=== PATIENT | male | born 1940 | race Caucasian/White ===

== ENCOUNTER 2021-06-19 08:29 | Emergency (ER) | payer MEDICARE, MEDICAID | END 2021-06-19 09:44 | disposition home or self-care (01) | LOC: ERS 08:29 | DX: M79.605 Pain in left leg (principal); M79.604 Pain in right leg; G89.29 Other chronic pain; R60.0 Localized edema; K21.9 Gastro-esophageal reflux disease without esophagitis; F17.210 Nicotine dependence, cigarettes, uncomplicated | CPT/HCPCS: 99283 ==

== ENCOUNTER 2021-06-23 12:34 | Outpatient (CLI) | payer MEDICARE, MEDICAID ==
[2021-06-23 13:59] LABS: Hemoglobin 15.4 g/dL (13.5-17.5); Mean Corpuscular HGB CONC 34.8 g/dL (32.0-36.0); Mean Corpuscular Hemoglobin 31.9 pg (27.0-33.0); Mean Corpuscular Volume 91.7 fl (81.2-95.1); Mean Platelet Volume 8.6 fl (7.4-10.4); Platelet Count 242 10x3/uL (150-450); RBC Distribution Width 13.2 % (11.5-14.5); Red Blood Cell (RBC) Count 4.83 10x6/uL (4.32-5.72); White Blood Cell (WBC) Count 4.9 10x3/uL (3.5-10.5)
[2021-06-23 14:10] LABS: Anion Gap 14 mmol/L (10-20); BUN (Urea Nitrogen) 7 mg/dL (8.4-25.7); Calc. Creatinine Clearance 0 mL/min (70-130); Calcium 8.9 mg/dL (7.8-10.44); Carbon Dioxide 25 mmol/L (23-31); Chloride 91 mmol/L (98-107); Glucose 79 mg/dL (83-110); Potassium 4.5 mmol/L (3.5-5.1); Sodium 125 mmol/L (136-145)
[2021-06-24 12:30] LABS: SARS-CoV-2 PCR by NAA Not Detected (NotDetected)
== END 2021-06-23 12:35 | disposition home or self-care (01) ==
LOC: LABBT 12:34
PROVIDERS: ATTEND Thoracic Surgery (Cardiothoracic Vascular Surgery)
DX: Z01.818 Encounter for other preprocedural examination (principal); Z20.822 Contact with and (suspected) exposure to COVID-19
CPT/HCPCS: 80048; 85027; 93005; U0003; U0005; 93010

== ENCOUNTER 2021-06-26 09:27 | Day surgery (SDC) | payer MEDICARE, MEDICAID ==
[2021-06-23 12:10] VITALS: BMI 18.1
[2021-06-26] MEDS ORDERED: Iopamidol 370 76% 50 ML VIAL FS ONE (09:28)
[2021-06-26 12:20] LABS: Anion Gap 14 mmol/L (10-20); BUN (Urea Nitrogen) 6 mg/dL (8.4-25.7); Calc. Creatinine Clearance 61 mL/min (70-130); Calcium 8.9 mg/dL (7.8-10.44); Carbon Dioxide 21 mmol/L (23-31); Glucose 92 mg/dL (83-110); Potassium 4.1 mmol/L (3.5-5.1); Sodium 124 mmol/L (136-145)
[2021-06-26 12:21] LABS: Chloride 93 mmol/L (98-107)
[2021-06-26] MEDS ORDERED: Heparin 10,000 UNITS/ 10 ML VIAL ONE (13:55)
[2021-06-26] MEDS ORDERED: Lidocaine 1% (PF) 30 ML VIAL ONE (13:55)
[2021-06-26] MEDS ORDERED: Fentanyl 100 MCG/2 ML VIAL ONE (14:24)
[2021-06-26] MEDS ORDERED: Midazolam HCl 2 mg/2 ml Vial ONE (14:24)
[2021-06-26] MEDS ORDERED: hydrALAZINE 20 MG/ML VIAL ONE (15:00)
== END 2021-06-26 17:12 | disposition home or self-care (01) ==
LOC: SDC 09:27
PROVIDERS: ATTEND Thoracic Surgery (Cardiothoracic Vascular Surgery)
PROC: B41G1ZZ Fluoroscopy of Left Lower Extremity Arteries using Low Osmolar Contrast (ICD-10-PCS; principal; 2021-06-26)
PROC: B41F1ZZ Fluoroscopy of Right Lower Extremity Arteries using Low Osmolar Contrast (ICD-10-PCS; 2021-06-26)
DX: I73.9 Peripheral vascular disease, unspecified (principal); I10 Essential (primary) hypertension; Z87.891 Personal history of nicotine dependence; Z79.899 Other long term (current) drug therapy
CPT/HCPCS: 75710; 80048; 99152; 99153; J0360; J1644; J2001; J2250; J3010; Q9967

== ENCOUNTER 2021-08-02 08:42 | Outpatient (CLI) | payer MEDICARE, MEDICAID ==
[2021-08-02 10:07] LABS: Hemoglobin 15.6 g/dL (13.5-17.5); Mean Corpuscular HGB CONC 33.5 g/dL (32.0-36.0); Mean Corpuscular Hemoglobin 32.5 pg (27.0-33.0); Mean Corpuscular Volume 96.9 fl (81.2-95.1); Mean Platelet Volume 8.7 fl (7.4-10.4); Platelet Count 246 10x3/uL (150-450); RBC Distribution Width 12.8 % (11.5-14.5); White Blood Cell (WBC) Count 4.7 10x3/uL (3.5-10.5)
[2021-08-02 10:39] LABS: Prothrombin Time 10.5 sec (9.5-12.1)
[2021-08-02 10:41] LABS: Anion Gap 14 mmol/L (10-20); BUN (Urea Nitrogen) 12 mg/dL (8.4-25.7); Calc. Creatinine Clearance 0 mL/min (70-130); Calcium 9.1 mg/dL (7.8-10.44); Carbon Dioxide 25 mmol/L (23-31); Chloride 98 mmol/L (98-107); Glucose 91 mg/dL (83-110); Potassium 4.3 mmol/L (3.5-5.1); Sodium 133 mmol/L (136-145)
== END 2021-08-02 08:43 | disposition home or self-care (01) ==
LOC: LABBT 08:42
PROVIDERS: ATTEND Thoracic Surgery (Cardiothoracic Vascular Surgery)
DX: Z01.812 Encounter for preprocedural laboratory examination (principal); I73.9 Peripheral vascular disease, unspecified; Z20.822 Contact with and (suspected) exposure to COVID-19
CPT/HCPCS: 80048; 85027; 85610; 85730; 86850; 86900; 86901; U0003; U0005

== ENCOUNTER 2021-08-02 08:45 | Inpatient (IN) | payer MEDICARE, MEDICAID ==
[2021-08-02 10:07] LABS: Hemoglobin 15.6 g/dL (13.5-17.5); Mean Corpuscular HGB CONC 33.5 g/dL (32.0-36.0); Mean Corpuscular Hemoglobin 32.5 pg (27.0-33.0); Mean Corpuscular Volume 96.9 fl (81.2-95.1); Mean Platelet Volume 8.7 fl (7.4-10.4); Platelet Count 246 10x3/uL (150-450); RBC Distribution Width 12.8 % (11.5-14.5); White Blood Cell (WBC) Count 4.7 10x3/uL (3.5-10.5)
[2021-08-02 10:39] LABS: Prothrombin Time 10.5 sec (9.5-12.1)
[2021-08-02 10:41] LABS: Anion Gap 14 mmol/L (10-20); BUN (Urea Nitrogen) 12 mg/dL (8.4-25.7); Calc. Creatinine Clearance 0 mL/min (70-130); Calcium 9.1 mg/dL (7.8-10.44); Carbon Dioxide 25 mmol/L (23-31); Chloride 98 mmol/L (98-107); Glucose 91 mg/dL (83-110); Potassium 4.3 mmol/L (3.5-5.1); Sodium 133 mmol/L (136-145)
[2021-08-07] MEDS ORDERED: Heparin 5,000 UNITS/ML VIAL ONE (07:38)
[2021-08-07] MEDS ORDERED: Protamine Sulfate 50 MG/5 ML VIAL ONE ×2 (07:38→10:58)
[2021-08-07] MEDS ORDERED: Lidocaine 1% MPF 2 ML VIAL ONE (08:28)
[2021-08-07] MEDS ORDERED: fentaNYL Citrate/PF 100 MCG/2 ML SYRINGE ONE ×2 (09:01→11:12)
[2021-08-07] MEDS ORDERED: PROPOFOL 200 MG/20 ML VIAL ONE (09:14)
[2021-08-07] MEDS ORDERED: Ondansetron PF 4 MG/2 ML Vial ONE (09:14)
[2021-08-07] MEDS ORDERED: Glycopyrrolate 0.2 MG/ML 5 ML SYRINGE ONE (09:14)
[2021-08-07] MEDS ORDERED: Dexamethasone 20 MG/5 ML VIAL ONE (09:14)
[2021-08-07] MEDS ORDERED: Lidocaine 1% PF 5 ML VIAL ONE (09:14)
[2021-08-07] MEDS ORDERED: Rocuronium Bromide 10 MG/ML (10ML VIAL) ONE (09:14)
[2021-08-07] MEDS ORDERED: CEFAZOLIN 2 GM VIAL ONE (09:35)
[2021-08-07] MEDS ORDERED: Sodium Chloride 0.9% 100 ML ONE (09:35)
[2021-08-07] MEDS ORDERED: EPINEPHrine 1 MG/ML AMP ONE (11:00)
[2021-08-07] MEDS ORDERED: Dexamethasone 4 mg/ml Vial ONE (11:00)
[2021-08-07] MEDS ORDERED: Bupivacaine PF 0.5% 30 ML VIAL ONE (11:00)
[2021-08-07] MEDS ORDERED: Ondansetron HCl/PF 4 MG/2 ML Vial IVP PRN (11:34)
[2021-08-07] MEDS ORDERED: Meperidine HCl/PF 25 MG/ML VIAL SLOW IVP PRN (11:34)
[2021-08-07] MEDS ORDERED: Promethazine HCl 25 MG/ML VIAL IM PRN (11:34)
[2021-08-07] MEDS ORDERED: Promethazine HCl 25 MG/ML VIAL IVPB PRN (11:34)
[2021-08-07] MEDS ORDERED: Acetaminophen 325 MG TAB PO PRN (11:46)
[2021-08-07] MEDS ORDERED: Ondansetron PF 4 MG/2 ML Vial IVP PRN (11:46)
[2021-08-07] MEDS ORDERED: traMADol HCl 50 MG TAB PO PRN (11:46)
[2021-08-07] MEDS ORDERED: hydrALAZINE 20 MG/ML VIAL SLOW IVP PRN (11:46)
[2021-08-07] MEDS ORDERED: Fentanyl 100 MCG/2 ML VIAL SLOW IVP PRN ×2 (11:46)
[2021-08-07 13:14] VITALS: BMI 21.5
[2021-08-07] MEDS: traMADol HCl 50 MG TAB PO PRN (14:34)
[2021-08-07] MEDS: Sodium Chloride 0.9% 1,000 ML IV SCH (14:34)
[2021-08-07] MEDS: CEFAZOLIN 2 GM in Sodium Chloride 0.9% 100 ML IVPB SCH (17:38)
[2021-08-07] MEDS: Atorvastatin Calcium 20 MG TAB PO SCH (20:26)
[2021-08-08] MEDS: Sodium Chloride 0.9% 1,000 ML IV SCH (01:48)
[2021-08-08] MEDS: CEFAZOLIN 2 GM in Sodium Chloride 0.9% 100 ML IVPB SCH ×2 (01:48→08:46)
[2021-08-08] MEDS: traMADol HCl 50 MG TAB PO PRN (03:45)
[2021-08-08] MEDS: Aspirin Chewable 81 MG TAB PO SCH (08:45)
[2021-08-08] MEDS: Lisinopril/Hydrochlorothiazide 20/25 mg Tablet PO SCH (08:45)
[2021-08-08] MEDS: Atorvastatin Calcium 20 MG TAB PO SCH (20:22)
[2021-08-09] MEDS: Aspirin Chewable 81 MG TAB PO SCH (08:26)
[2021-08-09] MEDS: Lisinopril/Hydrochlorothiazide 20/25 mg Tablet PO SCH (08:26)
[2021-08-09 08:28] VITALS: TEMP 98
[2021-08-09 10:30] VITALS: BP 143/94
== END 2021-08-09 10:11 | disposition home or self-care (01) | DRG 254 ==
LOC: SURG A 08-07 07:23 → T4-B 08-07 13:04
PROVIDERS: ADMIT Thoracic Surgery (Cardiothoracic Vascular Surgery); ATTEND Thoracic Surgery (Cardiothoracic Vascular Surgery)
PROC: 041L0JL Bypass Left Femoral Artery to Popliteal Artery with Synthetic Substitute, Open Approach (ICD-10-PCS; principal; 2021-08-07)
DX: I70.222 Atherosclerosis of native arteries of extremities with rest pain, left leg (principal); Z20.822 Contact with and (suspected) exposure to COVID-19; I10 Essential (primary) hypertension; J44.9 Chronic obstructive pulmonary disease, unspecified; Z87.891 Personal history of nicotine dependence; Z79.899 Other long term (current) drug therapy
CPT/HCPCS: 80048; 85027; 85610; 85730; 86850; 86900; 86901; C1786; J0171; J0690; J1100; J1642; J1644; J2720; J3490; J7050; S0020; U0003; U0005

== ENCOUNTER 2022-02-19 18:24 | Emergency (ER) | payer OTHER, MEDICARE, MEDICAID | END 2022-02-19 21:43 | disposition home or self-care (01) | LOC: ERS 18:24 | DX: S80.12XA Contusion of left lower leg, initial encounter (principal); K21.9 Gastro-esophageal reflux disease without esophagitis; I10 Essential (primary) hypertension; W01.0XXA Fall on same level from slipping, tripping and stumbling without subsequent striking against object, initial encounter; Y93.K9 Activity, other involving animal care; Z87.891 Personal history of nicotine dependence; Z79.82 Long term (current) use of aspirin ==